=== PATIENT | female | born 1990 | race Hispanic/Latino ===

== ENCOUNTER 2024-04-19 03:10 | Inpatient (IN) | payer BC ==
[2024-04-19 04:07] VITALS: BMI 25.4
[2024-04-19] MEDS ORDERED: Lactated Ringer's 1,000 ML IV SCH (05:00)
[2024-04-19] MEDS ORDERED: Misoprostol 200 MCG TAB PR PRN (05:00)
[2024-04-19 05:01] LABS: Hematocrit 34.5 % (34.9-44.5); Hemoglobin 11.7 g/dL (12.0-15.5); Mean Corpuscular HGB CONC 33.9 g/dL (32.0-36.0); Mean Corpuscular Hemoglobin 29.7 pg (27.0-33.0); Mean Corpuscular Volume 87.6 fL (81.6-98.3); Mean Platelet Volume 12.4 fL (7.4-10.4); Platelet Count 182 10x3/uL (150-450); RBC Distribution Width 12.4 % (11.5-14.5); Red Blood Cell (RBC) Count 3.94 10x6/uL (3.90-5.03); White Blood Cell (WBC) Count 10.7 10x3/uL (3.5-10.5)
[2024-04-19] MEDS ORDERED: Methylergonovine 0.2 MG/ML VIAL IM PRN (05:02)
[2024-04-19] MEDS ORDERED: fentaNYL 50 mcg/mL 1 mL Vial SLOW IVP PRN (05:04)
[2024-04-19] MEDS ORDERED: Carboprost 250 MCG/ML AMP IM PRN (05:12)
[2024-04-19] MEDS ORDERED: Diphenoxylate HCl/Atropine Tablet PO PRN ×2 (05:14→05:20)
[2024-04-19] MEDS ORDERED: Ondansetron PF 4 MG/2 ML Vial IVP PRN ×2 (05:15→10:37)
[2024-04-19] MEDS ORDERED: hydrALAZINE 20 MG/ML VIAL SLOW IVP PRN ×2 (05:15→10:37)
[2024-04-19] MEDS ORDERED: Promethazine HCl 25 MG/ML VIAL IM PRN ×2 (05:15→10:37)
[2024-04-19] MEDS ORDERED: Tranexamic Acid 1,000 MG/10 ML VIAL IVP PRN (05:17)
[2024-04-19] MEDS ORDERED: Oxytocin 30 units/NS 500 ML 500 ML IVPB SCH (05:30)
[2024-04-19 05:32] LABS: HBsAg Index 0.16 S/CO (0-0.99); Hep B Surf Ag - L&D Non-Reactive S/CO (NonReactive)
[2024-04-19 05:34] LABS: Syphilis Antibody Nonreactive (Nonreactive); Syphilis Antibody Index 0.07 S/CO (<1.00 Non-Reactive)
[2024-04-19] MEDS: Lidocaine 1% (PF) 30 ML VIAL SC PRN (07:13)
[2024-04-19] MEDS ORDERED: Penicillin G 2.5 MILL.units 2.5 MILL.UNITS in Premix 1 BAG IVPB SCH (09:00)
[2024-04-19] MEDS: Acetaminophen 500 MG TAB PO PRN (09:02)
[2024-04-19] MEDS ORDERED: Milk Of Magnesia 30 ML UDCUP PO PRN (10:37)
[2024-04-19] MEDS ORDERED: Lanolin Ointment 7 GM TUBE TOP PRN (10:37)
[2024-04-19] MEDS ORDERED: Bisacodyl 10 MG SUPP PR PRN (10:37)
[2024-04-19] MEDS ORDERED: Preparation H Ointment 28 GM TUBE PR PRN (10:37)
[2024-04-19] MEDS ORDERED: HYDROcodone/Acetaminophen 5/325 mg Tablet PO PRN ×2 (10:37)
[2024-04-19] MEDS ORDERED: Boostrix 0.5 ML (Tdap) VIAL (>/=7 yrs of age) IM ONE (10:37)
[2024-04-19] MEDS ORDERED: diphenhydrAMINE 25 MG CAP PO PRN (10:37)
[2024-04-19] MEDS: Oxytocin 30 units/NS 500 ML 500 ML ONE (11:10)
[2024-04-19] MEDS: Penicillin G Potassium 5 MILL.UNITS in Sodium Chloride 0.9% 100 ML IVPB SCH (11:10)
[2024-04-19] MEDS: Penicillin G Potassium 5 MILL.UNITS VIAL ONE (11:10)
[2024-04-19] MEDS: Prenatal Vitamin 1 TAB PO SCH ×2 (11:40)
[2024-04-19] MEDS: Docusate 100 MG CAP PO SCH ×2 (11:40→21:17)
[2024-04-19] MEDS: Ibuprofen 800 MG TAB PO SCH (13:39)
[2024-04-19] MEDS: Benzocaine-Menthol 82.5 ML CAN TOP PRN (13:43)
[2024-04-19] MEDS: Ferrous Sulfate 325 MG TAB PO SCH (15:29)
[2024-04-20 05:00] LABS: Hematocrit 22.7 % (34.9-44.5); Hemoglobin 7.9 g/dL (12.0-15.5); Mean Corpuscular HGB CONC 34.8 g/dL (32.0-36.0); Mean Corpuscular Hemoglobin 30.6 pg (27.0-33.0); Mean Platelet Volume 12.5 fL (7.4-10.4); Platelet Count 157 10x3/uL (150-450); RBC Distribution Width 12.8 % (11.5-14.5); Red Blood Cell (RBC) Count 2.58 10x6/uL (3.90-5.03); White Blood Cell (WBC) Count 10.2 10x3/uL (3.5-10.5)
[2024-04-20 11:51] VITALS: BP 95/50; TEMP 98.3
== END 2024-04-20 19:00 | disposition home or self-care (01) | DRG 807 ==
LOC: CSHLD/OP 03:10 → CSHLD 04:06 → CSHPP 10:15
PROVIDERS: ADMIT Student in an Organized Health Care Education/Training Program; ATTEND Student in an Organized Health Care Education/Training Program
PROC: 10E0XZZ Delivery of Products of Conception, External Approach (ICD-10-PCS; principal; 2024-04-19)
PROC: 0KQM0ZZ Repair Perineum Muscle, Open Approach (ICD-10-PCS; 2024-04-19)
DX: O99.824 Streptococcus B carrier state complicating childbirth (principal); Z37.0 Single live birth; Z3A.38 38 weeks gestation of pregnancy; O70.1 Second degree perineal laceration during delivery; O67.8 Other intrapartum hemorrhage
CPT/HCPCS: 36415; 85027; 86780; 86850; 86900; 86901; 87340; 99285; J2540